=== PATIENT | female | born 1990 | race Caucasian/White ===

== ENCOUNTER 2019-05-18 21:02 | Emergency (ER) | payer OTHER, SELFPAY ==
[2019-05-18 21:35] VITALS: BP 119/89; PULSE 94; RESP 14; TEMP 36.6; O2SAT 100
[2019-05-18] MEDS: TETANUS,DIPHTHERIA,AC PERTUSSIS ADULT 0.5 ML (ADACEL) IM (21:52)
--- NOTE | 2019-05-18 21:57 | ED.ANIMALBIT ---
HPI - Animal Bite General Chief Complaint: Animal Bite Stated Complaint: DOG BITE Time Seen by Provider: 05/18/19 21:49 Source: patient Mode of arrival: ambulatory Limitations: no limitations History of Present Illness HPI narrative: A 29 y/o female presents to the ED with c/o dog bite. Pt states that tonight she was sitting on the couch and leaned her head on her boyfriends sleeping dog, when the dog suddenly attacked her. She notes that she has done this to the dog many times and this has never happened before. Pt adds that the dog is up to date on its vaccinations. She had a Tetanus shot in the ED. complaint: animal bite Onset (ago): hour(s) (Today) Animal: dog Description of animal: household pet and immunizations UTD Mechanism: bite Location: face Context: unprovoked Associated symptoms: none Related Data Patient tetanus UTD: Yes Home Medications Medication Instructions Recorded Confirmed norethin-e.estradiol triphasic tablet 05/18/19 [Nortrel (28)] Allergies Allergy/AdvReac Type Severity Reaction Status Date / Time NKDA Allergy Unknown Unknown Uncoded 05/18/19 21:34 NKFA Allergy Unknown Unknown Uncoded 05/18/19 21:34 Review of Systems Review of Systems: Narrative: GASTROINTESTINAL: Deniesnausea, vomiting SKIN: Denies rash or itching. Reports dog bite to face. MUSCULOSKELETAL: Denies back pain, joint pain, or myalgia. All systems reviewed & are unremarkable except as noted in HPI and below PMFSH Past Medical History Medical History (Updated 05/18/19 @ 22:24 by Paris Tadeo MD) Asthma Ear infection Surgical History Surgical History (Updated 05/18/19 @ 22:15 by Daiana Sotelo) History of ear surgery History of tonsillectomy Social History Social History (Updated 05/18/19 @ 22:15 by Daiana Sotelo) Smoking status: Never smoker Gender identity (if verbalized by the patient): Female Exam Narrative: Exam Narrative: GENERAL: Well-appearing, well-nourished, and in no acute distress. HEAD: Normocephalic EYES: PERRLA and EOMI. ENT: Nares clear, no rhinorrhea or epistaxis. Mucous membranes moist. NECK: Supple. CHEST: No respiratory distress. HEART:Normal peripheral pulses. ABDOMEN: Nondistended EXTREMITIES: Normal range of motion. No edema. SKIN: 0.5 cm Superficial linear laceration to left maxilla that is not deep. 0.25 cm abrasion to the nasal bridge, puncture wound to left maxilla, left nares, and top of nose. No lip laceration. NEURO: No focal deficits. Alert and oriented X3. Course Course Emergency Course: Patient presented for evaluation of dog bite to the face. This occurred by domesticated dog who is in the care of her boyfriend. The dog is vaccinated. Patient with superficial laceration and puncture wound to the nose, nasal bridge, left maxilla and cheek. No through and through lacerations. No lacerations of the lip or mouth. No evidence of deep tissue injury. Patient's tetanus was updated. These would not benefit from any loose approximation, we will start the patient on Augmentin and give her close plastic surgery follow-up. Patient was given wound care instructions, wounds were irrigated and dressed in the emergency department. Patient was given her first dose of antibiotic in the ER and then she was discharged home. Vital Signs Vital signs: Vital Signs Temperature 36.6 C 05/18/19 21:35 Pulse Rate 94 05/18/19 21:35 Respiratory Rate 14 05/18/19 21:35 Blood Pressure 119/89 05/18/19 21:35 Pulse Oximetry 100 05/18/19 21:35 Temperature 36.6 C 05/18/19 21:35 Pulse Rate 94 05/18/19 21:35 Respiratory Rate 14 05/18/19 21:35 Blood Pressure 119/89 05/18/19 21:35 Pulse Oximetry 100 05/18/19 21:35 Discharge Plan Discharge Clinical Impression: Bite by animal Dog bite Qualifiers: Encounter type: initial encounter Qualified Code(s): W54.0XXA - Bitten by dog, initial encounter Facial laceration Qualifiers: Encounter t
[2019-05-18] MEDS: AMOXICILLIN/CLAVULANATE K 875-125 MG TAB 1 TABLET PO (22:27)
== END 2019-05-18 22:48 | disposition home or self-care (01) ==
PROVIDERS: Emergency Provider Emergency Medicine
DX: S01.85XA Open bite of other part of head, initial encounter (principal); S01.25XA Open bite of nose, initial encounter; S01.452A Open bite of left cheek and temporomandibular area, initial encounter; W54.0XXA Bitten by dog, initial encounter; Z23 Encounter for immunization; J45.909 Unspecified asthma, uncomplicated
CPT/HCPCS: 90471; 90715; 99283; A9270